=== PATIENT | female | born 1995 | race Caucasian/White ===

== ENCOUNTER 2016-07-16 06:34 | Emergency (ER) | payer BC, OTHER ==
[2016-07-16] MEDS ORDERED: ACETAMINOPHEN 325 MG TAB As Ordered ONE (07:13)
[2016-07-16] MEDS ORDERED: KETOROLAC 30 MG/ML VIAL (J1885) As Ordered ONE (07:14)
[2016-07-16 07:28] LABS: BASO # 0.1 K/mm3 (0.0-0.2); BASO % 1.2 % (0.0-1.0); EOS # 0.1 K/mm3 (0.0-0.50); EOS % 1.2 % (0.0-3.0); LARGE UNSTAINED CELL # 0.2 K/mm3 (0.0-0.4); LARGE UNSTAINED CELL % 3.1 % (0.0-4.0); LYMPH # 1.1 K/mm3 (1.5-6.5); LYMPH % 19.3 % (24.0-44.0); MEAN CORPUSCULAR HEMOGLOBIN 31.6 pg (27.0-33.0); MEAN CORPUSCULAR HGB CONC 34.1 g/dl (32.0-36.5); MEAN CORPUSCULAR VOLUME 92.7 fl (80.0-96.0); MONO # 0.5 K/mm3 (0.0-0.8); MONO % 9.8 % (0.0-5.0); NEUTROPHILS # 3.1 K/mm3 (1.8-7.7); NEUTROPHILS % 65.3 % (36.0-66.0); PLATELET COUNT, AUTOMATED 198 k/mm3 (150-450); RED CELL DISTRIBUTION WIDTH 12.4 % (11.5-14.5); WHITE BLOOD COUNT 4.7 K/mm3 (4.0-10.0)
[2016-07-16 07:57] LABS: ANION GAP 8 MEQ/L (8-16); BLOOD UREA NITROGEN 8 MG/DL (7-18); CALCIUM LEVEL 8.9 MG/DL (8.5-10.1); CARBON DIOXIDE LEVEL 25 MEQ/L (21-32); CHLORIDE LEVEL 109 MEQ/L (98-107); CREATININE FOR GFR 0.81 MG/DL (0.55-1.02); GLUCOSE, FASTING 109 MG/DL (70-105); POTASSIUM SERUM 3.9 MEQ/L (3.5-5.1); SODIUM LEVEL 142 MEQ/L (136-145)
--- NOTE | 2016-07-16 08:24 | REP ---
Clinical: cough. Comparison: 05/21/2015. Technique: PA and lateral. Findings: RLL infiltrate is identified. The mediastinum and cardiac silhouette are normal. The lung alexander are without effusion, or pneumothorax. The skeletal structures are intact and normal. Impression: 1. Acute right lower lobe infiltrate compatible with pneumonia. Signed by Wilner Crocker MD 07/16/2016 08:15 A
[2016-07-16] MEDS ORDERED: LevoFLOXacin/DEXTROSE 750 MG/150 ML BAG (J1956) As Ordered ONE (08:43)
--- NOTE | 2016-07-16 10:21 | EDDOCDS ---
Physician Documentation [facility] Name: Steffi Reynoso Age: 20 yrs Sex: Female : 1995 Arrival Date: 07/16/2016 Time: 06:34 Bed 12 Private MD: Tono Johnson Disposition: 07/16/16 08:39 Discharged to Home/Self Care. Impression: Pneumonia, unspecified organism, Fever, unspecified. - Condition is Stable. - Discharge Instructions: Fever, Adult, Pneumonia, Adult. - Prescriptions for Levaquin 750 mg Oral Tablet - take 1 tablet by ORAL route once daily for 5 days; 5 tablet. - Medication Reconciliation, Local Pharmacy Hours form. - Follow up: Tono Johnson; When: 4 - 5 days; Reason: Recheck today's complaints. - Problem is new. - Symptoms have improved. - Notes: You were seen in the ED for fever and chest congestion. Chest Xray showed pneumonia in the right lung. You may return home to take the antibiotics as directed as well as Tylenol and Ibuprofen to control the fever. Call your doctor to arrange to be seen this week for follow-up. Return to the ED for any worsening pain, trouble breathing, uncontrolled fever, or any other concerns. Historical: - Allergies: Augmentin; Rocephin; SHELLFISH; Zithromax; - Home Meds: 1. none - PMHx: none; - PSHx: Tonsillectomy; Adenoidectomy; - Social history: Smoking status: Patient states was never smoker of tobacco. No barriers to communication noted, The patient speaks fluent Montenegrin, Speaks appropriately for age. - Family history: Not pertinent. - : The pt / caregiver states he / she is not on anticoagulants. Home medication list is obtained from the patient. - Exposure Risk Screening:: None identified. 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 7 in. (170.18 cm); Pain 8/10; 07:52 BP 118 / 70; Pulse 91; Resp 18; Temp 99.6; Pulse Ox 99% ; Pain 8/10; hs1 10:15 BP 114 / 56 LA Sitting (auto/lg); Pulse 84; Resp 16; Temp 97.4(O); Pulse Ox 97% ; Pain jrd 8/10; 06:42 Body Mass Index 40.72 (117.93 kg, 170.18 cm) nn1 MDM: 06:57 IV Saline Lock ordered. cs11 06:57 -Blood Culture (Adults Only), peripheral from different site, or from device/port/PICC cs11 etc. if present ordered. 06:57 NS 0.9% 1000 ml IV at bolus once ordered. cs11 06:57 Acetaminophen Tablet 975 mg PO once ordered. cs11 06:57 ketorolac 30 mg IVP once ordered. cs11 06:58 CBC with Diff Ordered. EDMS 06:58 MED Profile Ordered. EDMS 06:58 -Influenza A&B Rapid Antigen - Nose Ordered. EDMS 06:58 -Blood Culture Ordered. EDMS 06:58 Chest, 2 View (pa\E\lat) Ordered. EDMS 07:00 -Blood Culture (Adults Only), peripheral from different site, or from device/port/PICC lbd etc. if present complete. 07:03 BLOOD CULTURES Ordered. EDMS 07:31 CBC with Diff Reviewed. br1 08:00 Financial registration complete. lg 08:33 [facility] Payment Agreement was scanned into [employer] and attached to record. lg 08:34 MED Profile Reviewed. br1 08:34 -Influenza A&B Rapid Antigen - Nose Reviewed. br1 08:37 levofloxacin 750 mg IVPB once over 90 mins ordered. br1 Administered Medications: 07:26 Drug: ketorolac 30 mg [ketorolac 30 mg/mL (1 mL) injection solution (1 mL)] Route: IVP; hs1 Site: right antecubital; 07:53 Follow up: Response: No Adverse Reaction hs1 07:27 Drug: NS 0.9% 1000 ml [sodium chloride 0.9 % intravenous solution] Route: IV; Rate: hs1 bolus; Site: right antecubital; 07:27 Drug: Acetaminophen 975 mg [acetaminophen 325 mg tablet (3 tabs)] Route: PO; hs1 07:52 Follow up: Response: Temperature is decreased hs1 08:51 Drug: levofloxacin 750 mg [levofloxacin 750 mg/150 mL in 5 % dextrose intravenous hs1 piggyback] Route: IVPB; Infused Over: 90 mins; Site: right antecubital; Signatures: Dispatcher [employer] EDAfua Cook, Marketing And Communications Officer Unit lbd Kingston Mendoza, Reg Reg lg Rubén Wade MD MD br1 Madai Cervantes RN RN hs1 Glenn Mckeon DO DO cs11 Dorota Torre RN RN af2 Rikki Rockwell RN RN nn1 The chart was reviewed and I authenticate all verbal orders and agree with the evaluation and treatment provided.Attachments: 08:33 [facility] Payment Agreement lg MTDD
--- NOTE | 2016-07-16 10:21 | EDDOCDS ---
Nurse's Notes [facility] Name: Steffi Reynoso Age: 20 yrs Sex: Female : 1995 Arrival Date: 07/16/2016 Time: 06:34 Bed 12 Private MD: Tono Johnson Diagnosis: Pneumonia, unspecified organism;Fever, unspecified Presentation: 07/16 06:38 Presenting complaint: Patient states: cold symptoms for last couple of days including nn1 coughing, vomiting, dizzy. Vomit is bright yellow, reports restlessness. Reports chest pain due to coughing. Adult Sepsis Screening: The patient does not have new or worsening altered mentation. Patient's respiratory rate is less than 22. Systolic blood pressure is greater than 100. Patient has a qSOFA score of 0- Negative Sepsis Screen. Suicide/Homicide risk assessment- the patient denies having any suicidal and/or homicidal ideations and does not present with any other emotional, behavioral or mental health complaints. Status: Patient is not a government services professional or dependent. Transition of care: patient was not received from another setting of care. 06:38 Acuity: ZAY Level 3 nn1 06:38 Method Of Arrival: Walkin/Carried/Asstd nn1 Triage Assessment: 06:40 General: Appears in no apparent distress, uncomfortable. Pain: Location: chest Pain nn1 currently is 9 out of 10 on a pain scale. Quality of pain is described as pressure, Pain began this AM. HIV screening NA for this visit Offered previously. The patient is triaged at the bedside. See Assessment in Nurses Notes section of ED record. Neurological: Level of Consciousness is awake, alert. Respiratory: Onset: The symptoms/episode began/occurred 3 days ago , Airway is patent Respiratory effort is even, Respiratory pattern is regular, symmetrical, Breath sounds are clear bilaterally. Reports cough that is. Derm: Skin is pink, warm & dry. 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 none - PMHx: none; - PSHx: Tonsillectomy; Adenoidectomy; - Social history: Smoking status: Patient states was never smoker of tobacco. No barriers to communication noted, The patient speaks fluent Swedish, Speaks appropriately for age. - Family history: Not pertinent. - : The pt / caregiver states he / she is not on anticoagulants. Home medication list is obtained from the patient. - Exposure Risk Screening:: None identified. Screenin:50 Screening information is obtained from the patient. Fall risk: No risks identified. af2 Assistance ADL's: requires no assistance with activities of daily living. Abuse/DV Screen: The patient / caregiver reports he/she is: not in a situation that causes fear, pain or injury. Nutritional screening: No deficits noted. Advance Directives: There is no active DNR order. home support is adequate. Assessment: 06:51 General: Appears in no apparent distress, comfortable, Behavior is cooperative. af2 Cardiovascular: No deficits noted. Respiratory: Airway is patent Respiratory effort is even, unlabored, Breath sounds are clear bilaterally. GI: Reports nausea, vomiting. 07:24 General: Appears in no apparent distress, Behavior is cooperative. Neurological: Level hs1 of Consciousness is awake, alert, obeys commands. EENT: Reports nasal congestion. Cardiovascular: No deficits noted. Respiratory: Airway is patent Respiratory effort is even, unlabored. Respiratory: Reports cough that is productive. GI: Abdomen is obese, Reports nausea. Derm: Skin is pink, warm & dry. normal. 07:51 Reassessment: Pt complaining of headache however starting to feel better. Pain in head hs1 is 8/10. Resting on stretcher with family present. . 08:45 Adult Sepsis Screening: The patient does not have new or worsening altered mentation. hs1 Patient's respiratory rate is less than 22. Systolic blood pressure is greater than 100. Patient has a qSOFA score of 0- Negative Sepsis Screen. General: Appears in no apparent distress, comfortable, Behavior is appropriate for age, cooperative. Neurological: No deficits noted. Cardiovascular: No deficits noted. Respiratory: Airway is patent Respiratory effort is even, unlabored. GI: Denies nausea, vomiting. Derm: Skin is pink, warm & dry. normal. 09:56 Reassessment: Patient appears in no apparent distress at this time. Patient states hs1 feeling better. Patient states symptoms have improved. Pt resting awaiting finishing IV Levaquin. . 10:20 Reassessment: Patient appears in no apparent distress at this time. Patient denies pain hs1 at this time. Patient states feeling better. Patient states symptoms have improved. Vital Signs: 06:42 BP 144 / 91; Pulse 125; Resp 18; Temp 100.2(T); Pulse Ox 96% on R/A; Weight 117.93 kg; nn1 Height 5 ft. 7 in. (170.18 cm); Pain 8/10; 07:52 BP 118 / 70; Pulse 91; Resp 18; Temp 99.6; Pulse Ox 99% ; Pain 8/10; hs1 10:15 BP 114 / 56 LA Sitting (auto/lg); Pulse 84; Resp 16; Temp 97.4(O); Pulse Ox 97% ; Pain jrd 8/10; 06:42 Body Mass Index 40.72 (117.93 kg, 170.18 cm) nn1 Vitals: 06:42 Log In Time: July 16, 2016 at 06:34. nn1 ED Course: 06:36 Patient visited by Perla Escobar. mm15 06:36 Tono Johnson is Private Physician. mm15 06:36 Patient moved to Waiting mm15 06:39 Triage Initiated nn1 06:44 Dorota Torre RN is Primary Nurse. nn1 06:44 Patient moved to 12 nn1 06:50 Glenn Mckeon DO is Attending Physician. cs11 06:50 Patient visited by Glenn Mckeon DO. cs11 06:51 Patient visited by Dorota Torre RN. af2 06:51 The patient / caregiver is instructed regarding the plan of care and ED course. af2 07:00 Inserted saline lock: 20 gauge in right antecubital area and blood collected. The hs1 patient tolerated the procedure well. 07:07 Attending Physician role handed off by Glenn Mckeon DO br1 07:07 Rubén Wade MD is Attending Physician. br1 07:11 Primary Nurse role handed off by Dorota Torre RN jjr 07:12 MED Profile Sent. hs1 07:12 CBC with Diff Sent. hs1 07:12 -Influenza A&B Rapid Antigen - Nose Sent. hs1 07:39 Patient visited by Madai Cervantes, VIC. hs1 08:14 Patient visited by Madai Cervantes, VIC. hs1 08:[address] [facility] Payment Agreement was scanned into [employer] and attached to record. lg 08:37 Patient visited by Rubén Wade MD. br1 08:39 Tono Johnson is Referral Physician. br1 08:42 Chest, 2 View (pa\E\lat) Returned. EDMS 08:51 BLOOD CULTURES Sent. hs1 10:16 Patient visited by Ron Langford PCA. jrd 10:20 Discontinued IV lock intact, bleeding controlled, pressure dressing applied, No hs1 redness/swelling at site. No procedures done that require assistance. Administered Medications: 07:26 Drug: ketorolac 30 mg [ketorolac 30 mg/mL (1 mL) injection solution (1 mL)] Route: IVP; hs1 Site: right antecubital; 07:53 Follow up: Response: No Adverse Reaction hs1 07:27 Drug: NS 0.9% 1000 ml [sodium chloride 0.9 % intravenous solution] Route: IV; Rate: hs1 bolus; Site: right antecubital; 07:27 Drug: Acetaminophen 975 mg [acetaminophen 325 mg tablet (3 tabs)] Route: PO; hs1 07:52 Follow up: Response: Temperature is decreased hs1 08:51 Drug: levofloxacin 750 mg [levofloxacin 750 mg/150 mL in 5 % dextrose intravenous hs1 piggyback] Route: IVPB; Infused Over: 90 mins; Site: right antecubital; Order Results: Lab Order: -Influenza A&B Rapid Antigen - Nose; SPEC'M 07/16/16 07:10 Test: INFLUENZA A RAPID SCR by ICA; Value: INFLUENZA A RESULTS NEGATIVE; Status: F Test: INFLUENZA A RAPID SCR by ICA; Value: Comments:; Status: F Test: INFLUENZA B RAPID SCR by ICA; Value: INFLUENZA B RESULTS NEGATIVE; Status: F Test Note: ; The Influenza test is a direct rapid immunoassay for the qualitative detection of Influenza viral antigen. Cell culture (Viral Culture) testing should be considered to confirm NEGATIVE results and to assist in detecting other viruses that can provide similar clinical symptoms. Please contact the lab within 24 hours ([phone]) if confirmatory testing is desired. Lab Order: CBC with Diff; SPEC'M 07/16/16 07:10 Test: WHITE BLOOD COUNT; Value: 4.7; Range: 4.0-10.0; Units: K/mm3; Status: F Test: RED BLOOD COUNT; Value: 4.83; Range: 4.00-5.40; Units: M/mm3; Status: F Test: HEMOGLOBIN; Value: 15.3; Range: 12.0-16.0; Units: g/dl; Status: F Test: HEMATOCRIT; Value: 44.8; Range: 36.0-47.0; Units: %; Status: F Test: MEAN CORPUSCULAR VOLUME; Value: 92.7; Range: 80.0-96.0; Units: fl; Status: F Test: MEAN CORPUSCULAR HEMOGLOBIN; Value: 31.6; Range: 27.0-33.0; Units: pg; Status: F Test: MEAN CORPUSCULAR HGB CONC; Value: 34.1; Range: 32.0-36.5; Units: g/dl; Status: F Test: RED CELL DISTRIBUTION WIDTH; Value: 12.4; Range: 11.5-14.5; Units: %; Status: F Test: PLATELET COUNT, AUTOMATED; Value: 198; Range: 150-450; Units: k/mm3; Status: F Test: NEUTROPHILS %; Value: 65.3; Range: 36.0-66.0; Units: %; Status: F Test: LYMPH %; Value: 19.3; Range: 24.0-44.0; Abnormal: Below low normal; Units: %; Status: F Test: MONO %; Value: 9.8; Range: 0.0-5.0; Abnormal: Above high normal; Units: %; Status: F Test: EOS %; Value: 1.2; Range: 0.0-3.0; Units: %; Status: F Test: BASO %; Value: 1.2; Range: 0.0-1.0; Abnormal: Above high normal; Units: %; Status: F Test: LARGE UNSTAINED CELL %; Value: 3.1; Range: 0.0-4.0; Units: %; Status: F Test: NEUTROPHILS #; Value: 3.1; Range: 1.8-7.7; Units: K/mm3; Status: F Test: LYMPH #; Value: 1.1; Range: 1.5-6.5; Abnormal: Below low normal; Units: K/mm3; Status: F Test: MONO #; Value: 0.5; Range: 0.0-0.8; Units: K/mm3; Status: F Test: EOS #; Value: 0.1; Range: 0.0-0.50; Units: K/mm3; Status: F Test: BASO #; Value: 0.1; Range: 0.0-0.2; Units: K/mm3; Status: F Test: LARGE UNSTAINED CELL #; Value: 0.2; Range: 0.0-0.4; Units: K/mm3; Status: F Lab Order: MED Profile; SPEC'M 07/16/16 07:10 Test: GLUCOSE, FASTING; Value: 109; Range: 70-105; Abnormal: Above high normal; Units: MG/DL; Status: F Test: BLOOD UREA NITROGEN; Value: 8; Range: 7-18; Units: MG/DL; Status: F Test: CREATININE FOR GFR; Value: 0.81; Range: 0.55-1.02; Units: MG/DL; Status: F Test: SODIUM LEVEL; Value: 142; Range: 136-145; Units: MEQ/L; Status: F Test: POTASSIUM SERUM; Value: 3.9; Range: 3.5-5.1; Units: MEQ/L; Status: F Test: CHLORIDE LEVEL; Value: 109; Range: 98-107; Abnormal: Above high normal; Units: MEQ/L; Status: F Test: CARBON DIOXIDE LEVEL; Value: 25; Range: 21-32; Units: MEQ/L; Status: F Test: ANION GAP; Value: 8; Range: 8-16; Units: MEQ/L; Status: F Test: CALCIUM LEVEL; Value: 8.9; Range: 8.5-10.1; Units: MG/DL; Status: F Radiology Order: Chest, 2 View (pa\E\lat) Test: Chest, 2 View (pa\E\lat) REASON FOR EXAMINATION: Cough; Clinical: cough.; ; Comparison: 05/21/2015.; ; Technique: PA and lateral.; ; Findings:; RLL infiltrate is identified. The mediastinum and cardiac silhouette are normal.; The lung alexander are without effusion, or pneumothorax. The skeletal structures; are intact and normal.; ; Impression:; 1. Acute right lower lobe infiltrate compatible with pneumonia.; ; ; Signed by; Wilner Crocker MD 07/16/2016 08:15 A; Outcome: 08:39 Discharge ordered by Provider. br1 10:20 Discharge Assessment: Patient awake, alert and oriented x 3. No cognitive and/or hs1 functional deficits noted. Patient verbalized understanding of disposition instructions. patient administered narcotics - no. The following High Risk Discharge criteria are identified: None. Discharged to home ambulatory. Condition: stable. Discharge instructions given to patient, parents Instructed on discharge instructions, follow up and referral plans. medication usage, Demonstrated understanding of instructions, medications, Pt was receptive of discharge instructions/ teaching. Prescriptions given X 1. No special radiology studies were completed. Property sent home with patient. 10:21 Patient left the ED. hs1 Signatures: Dispatcher [employer] EDMS Kingston Mendoza, Rubén Ayala lg, MD MD br1 Enedina Meléndez, RN RN Madai Nunez RN RN hs1 Glenn Mckeon, DO cs11 Perla Escobar mm15 Ron Langford, [facility] REHAB DIRECTOR Dorota PierceRN RN af2 Rikki Rockwell,RN RN nn1 Corrections: (The following items were deleted from the chart) 07:26 06:51 No procedures done that require assistance af2 hs1 07:26 06:51 No IV's were initiated during this patient's visit af2 hs1 MTDD
--- NOTE | 2016-07-18 11:22 | EDDOCDS ---
Nurse's Notes [facility] Name: Steffi Reynoso Age: 20 yrs Sex: Female : 1995 Arrival Date: 07/16/2016 Time: 06:34 Bed 12 Private MD: Tono Johnson Diagnosis: Pneumonia, unspecified organism;Fever, unspecified Presentation: 07/16 06:38 Presenting complaint: Patient states: cold symptoms for last couple of days including nn1 coughing, vomiting, dizzy. Vomit is bright yellow, reports restlessness. Reports chest pain due to coughing. Adult Sepsis Screening: The patient does not have new or worsening altered mentation. Patient's respiratory rate is less than 22. Systolic blood pressure is greater than 100. Patient has a qSOFA score of 0- Negative Sepsis Screen. Suicide/Homicide risk assessment- the patient denies having any suicidal and/or homicidal ideations and does not present with any other emotional, behavioral or mental health complaints. 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 Transition of care: patient was not received from another setting of care. 06:38 Acuity: ZAY Level 3 nn1 06:38 Method Of Arrival: Walkin/Carried/Asstd nn1 Triage Assessment: 06:40 General: Appears in no apparent distress, uncomfortable. Pain: Location: chest Pain nn1 currently is 9 out of 10 on a pain scale. Quality of pain is described as pressure, Pain began this AM. HIV screening NA for this visit Offered previously. The patient is triaged at the bedside. See Assessment in Nurses Notes section of ED record. Neurological: Level of Consciousness is awake, alert. Respiratory: Onset: The symptoms/episode began/occurred 3 days ago , Airway is patent Respiratory effort is even, Respiratory pattern is regular, symmetrical, Breath sounds are clear bilaterally. Reports cough that is. Derm: Skin is pink, warm & dry. 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 none - PMHx: none; - PSHx: Tonsillectomy; Adenoidectomy; - Social history: Smoking status: Patient states was never smoker of tobacco. No barriers to communication noted, The patient speaks fluent Divehi, Speaks appropriately for age. - Family history: Not pertinent. - : The pt / caregiver states he / she is not on anticoagulants. Home medication list is obtained from the patient. - Exposure Risk Screening:: None identified. Screenin:50 Screening information is obtained from the patient. Fall risk: No risks identified. af2 Assistance ADL's: requires no assistance with activities of daily living. Abuse/DV Screen: The patient / caregiver reports he/she is: not in a situation that causes fear, pain or injury. Nutritional screening: No deficits noted. Advance Directives: There is no active DNR order. home support is adequate. Assessment: 06:51 General: Appears in no apparent distress, comfortable, Behavior is cooperative. af2 Cardiovascular: No deficits noted. Respiratory: Airway is patent Respiratory effort is even, unlabored, Breath sounds are clear bilaterally. GI: Reports nausea, vomiting. 07:24 General: Appears in no apparent distress, Behavior is cooperative. Neurological: Level hs1 of Consciousness is awake, alert, obeys commands. EENT: Reports nasal congestion. Cardiovascular: No deficits noted. Respiratory: Airway is patent Respiratory effort is even, unlabored. Respiratory: Reports cough that is productive. GI: Abdomen is obese, Reports nausea. Derm: Skin is pink, warm & dry. normal. 07:51 Reassessment: Pt complaining of headache however starting to feel better. Pain in head hs1 is 8/10. Resting on stretcher with family present. . 08:45 Adult Sepsis Screening: The patient does not have new or worsening altered mentation. hs1 Patient's respiratory rate is less than 22. Systolic blood pressure is greater than 100. Patient has a qSOFA score of 0- Negative Sepsis Screen. General: Appears in no apparent distress, comfortable, Behavior is appropriate for age, cooperative. Neurological: No deficits noted. Cardiovascular: No deficits noted. Respiratory: Airway is patent Respiratory effort is even, unlabored. GI: Denies nausea, vomiting. Derm: Skin is pink, warm & dry. normal. 09:56 Reassessment: Patient appears in no apparent distress at this time. Patient states hs1 feeling better. Patient states symptoms have improved. Pt resting awaiting finishing IV Levaquin. . 10:20 Reassessment: Patient appears in no apparent distress at this time. Patient denies pain hs1 at this time. Patient states feeling better. Patient states symptoms have improved. Vital Signs: 06:42 BP 144 / 91; Pulse 125; Resp 18; Temp 100.2(T); Pulse Ox 96% on R/A; Weight 117.93 kg; nn1 Height 5 ft. 7 in. (170.18 cm); Pain 8/10; 07:52 BP 118 / 70; Pulse 91; Resp 18; Temp 99.6; Pulse Ox 99% ; Pain 8/10; hs1 10:15 BP 114 / 56 LA Sitting (auto/lg); Pulse 84; Resp 16; Temp 97.4(O); Pulse Ox 97% ; Pain jrd 8/10; 06:42 Body Mass Index 40.72 (117.93 kg, 170.18 cm) nn1 Vitals: 06:42 Log In Time: July 16, 2016 at 06:34. nn1 ED Course: 06:36 Patient visited by Perla Escobar. mm15 06:36 Tono Johnson is Private Physician. mm15 06:36 Patient moved to Waiting mm15 06:39 Triage Initiated nn1 06:44 Dorota Torre RN is Primary Nurse. nn1 06:44 Patient moved to 12 nn1 06:50 Glenn Mckeon DO is Attending Physician. cs11 06:50 Patient visited by Glenn Mckeon DO. cs11 06:51 Patient visited by Dorota Torre RN. af2 06:51 The patient / caregiver is instructed regarding the plan of care and ED course. af2 07:00 Inserted saline lock: 20 gauge in right antecubital area and blood collected. The hs1 patient tolerated the procedure well. 07:07 Attending Physician role handed off by Glenn Mckeon DO br1 07:07 Rubén Wade MD is Attending Physician. br1 07:11 Primary Nurse role handed off by Dorota Torre RN jjr 07:12 MED Profile Sent. hs1 07:12 CBC with Diff Sent. hs1 07:12 -Influenza A&B Rapid Antigen - Nose Sent. hs1 07:39 Patient visited by Madai Cervantes, VIC. hs1 08:14 Patient visited by Madai Cervantes, VIC. hs1 08:33 [facility] [place] Agreement was scanned into [employer] and attached to record. lg 08:37 Patient visited by Rubén Wade MD. br1 08:39 Tono Johnson is Referral Physician. br1 08:42 Chest, 2 View (pa\E\lat) Returned. EDMS 08:51 BLOOD CULTURES Sent. hs1 10:16 Patient visited by Ron Langford PCA. jrd 10:20 Discontinued IV lock intact, bleeding controlled, pressure dressing applied, No hs1 redness/swelling at site. No procedures done that require assistance. 07/17 09:28 T-Sheet-- Draft Copy was scanned into [employer] and attached to record. gb 09:29 Radiology Report was scanned into [employer] and attached to record. gb Administered Medications: 07/16 07:26 Drug: ketorolac 30 mg [ketorolac 30 mg/mL (1 mL) injection solution (1 mL)] Route: IVP; hs1 Site: right antecubital; 07:53 Follow up: Response: No Adverse Reaction hs1 07:27 Drug: NS 0.9% 1000 ml [sodium chloride 0.9 % intravenous solution] Route: IV; Rate: hs1 bolus; Site: right antecubital; 07:27 Drug: Acetaminophen 975 mg [acetaminophen 325 mg tablet (3 tabs)] Route: PO; hs1 07:52 Follow up: Response: Temperature is decreased hs1 08:51 Drug: levofloxacin 750 mg [levofloxacin 750 mg/150 mL in 5 % dextrose intravenous hs1 piggyback] Route: IVPB; Infused Over: 90 mins; Site: right antecubital; 10:21 Follow up: IV Status: Completed infusion; IV Intake: 150ml hs1 Intake: 10:21 IV: 150.00ml; Total: 150.00ml. hs1 Order Results: Lab Order: -Influenza A&B Rapid Antigen - Nose; SPEC'M 07/16/16 07:10 Test: INFLUENZA A RAPID SCR by ICA; Value: INFLUENZA A RESULTS NEGATIVE; Status: F Test: INFLUENZA A RAPID SCR by ICA; Value: Comments:; Status: F Test: INFLUENZA B RAPID SCR by ICA; Value: INFLUENZA B RESULTS NEGATIVE; Status: F Test Note: ; The Influenza test is a direct rapid immunoassay for the qualitative detection of Influenza viral antigen. Cell culture (Viral Culture) testing should be considered to confirm NEGATIVE results and to assist in detecting other viruses that can provide similar clinical symptoms. Please contact the lab within 24 hours ([phone]) if confirmatory testing is desired. Lab Order: -Blood Culture; SPEC'M 07/16/16 07:10 Test: BLOOD CULTURE; Value: No growth after 24 hours . All specimens observed; Status: F Test: BLOOD CULTURE; Value: for 5 days. Results final at that time.; Status: F Test: BLOOD CULTURE; Value: No Growth after 48 hours. All Specimens observed; Status: F Test: BLOOD CULTURE; Value: for 7 days. Results final at that time.; Status: F Lab Order: CBC with Diff; SPEC'M 07/16/16 07:10 Test: WHITE BLOOD COUNT; Value: 4.7; Range: 4.0-10.0; Units: K/mm3; Status: F Test: RED BLOOD COUNT; Value: 4.83; Range: 4.00-5.40; Units: M/mm3; Status: F Test: HEMOGLOBIN; Value: 15.3; Range: 12.0-16.0; Units: g/dl; Status: F Test: HEMATOCRIT; Value: 44.8; Range: 36.0-47.0; Units: %; Status: F Test: MEAN CORPUSCULAR VOLUME; Value: 92.7; Range: 80.0-96.0; Units: fl; Status: F Test: MEAN CORPUSCULAR HEMOGLOBIN; Value: 31.6; Range: 27.0-33.0; Units: pg; Status: F Test: MEAN CORPUSCULAR HGB CONC; Value: 34.1; Range: 32.0-36.5; Units: g/dl; Status: F Test: RED CELL DISTRIBUTION WIDTH; Value: 12.4; Range: 11.5-14.5; Units: %; Status: F Test: PLATELET COUNT, AUTOMATED; Value: 198; Range: 150-450; Units: k/mm3; Status: F Test: NEUTROPHILS %; Value: 65.3; Range: 36.0-66.0; Units: %; Status: F Test: LYMPH %; Value: 19.3; Range: 24.0-44.0; Abnormal: Below low normal; Units: %; Status: F Test: MONO %; Value: 9.8; Range: 0.0-5.0; Abnormal: Above high normal; Units: %; Status: F Test: EOS %; Value: 1.2; Range: 0.0-3.0; Units: %; Status: F Test: BASO %; Value: 1.2; Range: 0.0-1.0; Abnormal: Above high normal; Units: %; Status: F Test: LARGE UNSTAINED CELL %; Value: 3.1; Range: 0.0-4.0; Units: %; Status: F Test: NEUTROPHILS #; Value: 3.1; Range: 1.8-7.7; Units: K/mm3; Status: F Test: LYMPH #; Value: 1.1; Range: 1.5-6.5; Abnormal: Below low normal; Units: K/mm3; Status: F Test: MONO #; Value: 0.5; Range: 0.0-0.8; Units: K/mm3; Status: F Test: EOS #; Value: 0.1; Range: 0.0-0.50; Units: K/mm3; Status: F Test: BASO #; Value: 0.1; Range: 0.0-0.2; Units: K/mm3; Status: F Test: LARGE UNSTAINED CELL #; Value: 0.2; Range: 0.0-0.4; Units: K/mm3; Status: F Lab Order: [facility] Profile; [facility] 07/16/16 07:10 Test: GLUCOSE, FASTING; Value: 109; Range: 70-105; Abnormal: Above high normal; Units: MG/DL; Status: F Test: BLOOD UREA NITROGEN; Value: 8; Range: 7-18; Units: MG/DL; Status: F Test: CREATININE FOR GFR; Value: 0.81; Range: 0.55-1.02; Units: MG/DL; Status: F Test: SODIUM LEVEL; Value: 142; Range: 136-145; Units: MEQ/L; Status: F Test: POTASSIUM SERUM; Value: 3.9; Range: 3.5-5.1; Units: MEQ/L; Status: F Test: CHLORIDE LEVEL; Value: 109; Range: 98-107; Abnormal: Above high normal; Units: MEQ/L; Status: F Test: CARBON DIOXIDE LEVEL; Value: 25; Range: 21-32; Units: MEQ/L; Status: F Test: ANION GAP; Value: 8; Range: 8-16; Units: MEQ/L; Status: F Test: CALCIUM LEVEL; Value: 8.9; Range: 8.5-10.1; Units: MG/DL; Status: F Lab Order: BLOOD CULTURES; SPEC'M 07/16/16 08:50 Test: BLOOD CULTURE; Value: No growth after 24 hours . All specimens observed; Status: F Test: BLOOD CULTURE; Value: for 5 days. Results final at that time.; Status: F Test: BLOOD CULTURE; Value: No Growth after 48 hours. All Specimens observed; Status: F Test: BLOOD CULTURE; Value: for 7 days. Results final at that time.; Status: F Radiology Order: Chest, 2 View (pa\E\lat) Test: Chest, 2 View (pa\E\lat) REASON FOR EXAMINATION: Cough; Clinical: cough.; ; Comparison: 05/21/2015.; ; Technique: PA and lateral.; ; Findings:; RLL infiltrate is identified. The mediastinum and cardiac silhouette are normal.; The lung alexander are without effusion, or pneumothorax. The skeletal structures; are intact and normal.; ; Impression:; 1. Acute right lower lobe infiltrate compatible with pneumonia.; ; ; Signed by; Wilner Crocker MD 07/16/2016 08:15 A; Outcome: 08:39 Discharge ordered by Provider. br1 10:20 Discharge Assessment: Patient awake, alert and oriented x 3. No cognitive and/or hs1 functional deficits noted. Patient verbalized understanding of disposition instructions. patient administered narcotics - no. The following High Risk Discharge criteria are identified: None. Discharged to home ambulatory. Condition: stable. Discharge instructions given to patient, parents Instructed on discharge instructions, follow up and referral plans. medication usage, Demonstrated understanding of instructions, medications, Pt was receptive of discharge instructions/ teaching. Prescriptions given X 1. No special radiology studies were completed. Property sent home with patient. 10:21 Patient left the ED. hs1 Signatures: Dispatcher [employer] EDMS Aurora Gómez, Reg Reg gb Kingston Mendoza, Reg Reg lg Rubén Wade MD MD br1 Enedina Meléndez RN RN jjr Sherrill, Hannah, RN RN hs1 Glenn Mckeon DO cs11 Perla Escobar mm15 Ron Langford, V GROOVE CUTTER V GROOVE CUTTER jrd Dorota TorreRN RN af2 Rikki Rockwell RN RN nn1 Corrections: (The following items were deleted from the chart) 07: 06:51 No procedures done that require assistance af2 hs1 06:51 No IV's were initiated during this patient's visit af2 hs1 Chart Complete MTDD
--- NOTE | 2016-07-18 11:22 | EDDOCDS ---
Physician Documentation [facility] Name: Steffi Reynoso Age: 20 yrs Sex: Female : 1995 Arrival Date: 07/16/2016 Time: 06:34 Bed 12 Private MD: Tono Johnson Disposition: 07/16/16 08:39 Discharged to Home/Self Care. Impression: Pneumonia, unspecified organism, Fever, unspecified. - Condition is Stable. - Discharge Instructions: Fever, Adult, Pneumonia, Adult. - Prescriptions for Levaquin 750 mg Oral Tablet - take 1 tablet by ORAL route once daily for 5 days; 5 tablet. - Medication Reconciliation, Local Pharmacy Hours form. - Follow up: Tono Johnson; When: 4 - 5 days; Reason: Recheck today's complaints. - Problem is new. - Symptoms have improved. - Notes: You were seen in the ED for fever and chest congestion. Chest Xray showed pneumonia in the right lung. You may return home to take the antibiotics as directed as well as Tylenol and Ibuprofen to control the fever. Call your doctor to arrange to be seen this week for follow-up. Return to the ED for any worsening pain, trouble breathing, uncontrolled fever, or any other concerns. Historical: - Allergies: Augmentin; Rocephin; SHELLFISH; Zithromax; - Home Meds: 1. none - PMHx: none; - PSHx: Tonsillectomy; Adenoidectomy; - Social history: Smoking status: Patient states was never smoker of tobacco. No barriers to communication noted, The patient speaks fluent Cape Verdean, Speaks appropriately for age. - Family history: Not pertinent. - : The pt / caregiver states he / she is not on anticoagulants. Home medication list is obtained from the patient. - Exposure Risk Screening:: None identified. 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 7 in. (170.18 cm); Pain 8/10; 07:52 BP 118 / 70; Pulse 91; Resp 18; Temp 99.6; Pulse Ox 99% ; Pain 8/10; hs1 10:15 BP 114 / 56 LA Sitting (auto/lg); Pulse 84; Resp 16; Temp 97.4(O); Pulse Ox 97% ; Pain jrd 8/10; 06:42 Body Mass Index 40.72 (117.93 kg, 170.18 cm) nn1 MDM: 06:57 IV Saline Lock ordered. cs11 06:57 -Blood Culture (Adults Only), peripheral from different site, or from device/port/PICC cs11 etc. if present ordered. 06:57 NS 0.9% 1000 ml IV at bolus once ordered. cs11 06:57 Acetaminophen Tablet 975 mg PO once ordered. cs11 06:57 ketorolac 30 mg IVP once ordered. cs11 06:58 CBC with Diff Ordered. EDMS 06:58 MED Profile Ordered. EDMS 06:58 -Influenza A&B Rapid Antigen - Nose Ordered. EDMS 06:58 -Blood Culture Ordered. EDMS 06:58 Chest, 2 View (pa\E\lat) Ordered. EDMS 07:00 -Blood Culture (Adults Only), peripheral from different site, or from device/port/PICC lbd etc. if present complete. 07:03 BLOOD CULTURES Ordered. EDMS 07:31 CBC with Diff Reviewed. br1 08:00 Financial registration complete. lg 08:33 [facility] [place] Payment Agreement was scanned into [employer] and attached to record. lg 08:34 MED Profile Reviewed. br1 08:34 -Influenza A&B Rapid Antigen - Nose Reviewed. br1 08:37 levofloxacin 750 mg IVPB once over 90 mins ordered. br1 07/17 09:28 T-Sheet-- Draft Copy was scanned into [employer] and attached to record. gb 09:29 Radiology Report was scanned into [employer] and attached to record. gb Administered Medications: 07/16 07:26 Drug: ketorolac 30 mg [ketorolac 30 mg/mL (1 mL) injection solution (1 mL)] Route: IVP; hs1 Site: right antecubital; 07:53 Follow up: Response: No Adverse Reaction hs1 07:27 Drug: NS 0.9% 1000 ml [sodium chloride 0.9 % intravenous solution] Route: IV; Rate: hs1 bolus; Site: right antecubital; 07:27 Drug: Acetaminophen 975 mg [acetaminophen 325 mg tablet (3 tabs)] Route: PO; hs1 07:52 Follow up: Response: Temperature is decreased hs1 08:51 Drug: levofloxacin 750 mg [levofloxacin 750 mg/150 mL in 5 % dextrose intravenous hs1 piggyback] Route: IVPB; Infused Over: 90 mins; Site: right antecubital; 10:21 Follow up: IV Status: Completed infusion; IV Intake: 150ml hs1 Signatures: Dispatcher [employer] EDMS Afua Parmar, Stained Glass Window Designer Unit lbd Aurora Gómez, Reg Reg gb Kingston Mendoza, Reg Reg lg Rubén Wade MD MD br1 Madai Cervantes RN RN hs1 Glenn Mckeon DO DO cs11 Dorota Torre RN RN af2 Rikki Rockwell,RN RN nn1 The chart was reviewed and I authenticate all verbal orders and agree with the evaluation and treatment provided.Attachments: 08:33 [facility] Payment Agreement lg 07/17 09:28 T-Sheet-- Draft Copy gb Chart Complete MTDD
--- NOTE | 2016-07-18 11:22 | EDDOCDS ---
Physician Documentation [facility] Name: Steffi Reynoso Age: 20 yrs Sex: Female : 1995 Arrival Date: 07/16/2016 Time: 06:34 Bed 12 Private MD: Tono Johnson Disposition: 07/16/16 08:39 Discharged to Home/Self Care. Impression: Pneumonia, unspecified organism, Fever, unspecified. - Condition is Stable. - Discharge Instructions: Fever, Adult, Pneumonia, Adult. - Prescriptions for Levaquin 750 mg Oral Tablet - take 1 tablet by ORAL route once daily for 5 days; 5 tablet. - Medication Reconciliation, Local Pharmacy Hours form. - Follow up: Tono Johnson; When: 4 - 5 days; Reason: Recheck today's complaints. - Problem is new. - Symptoms have improved. - Notes: You were seen in the ED for fever and chest congestion. Chest Xray showed pneumonia in the right lung. You may return home to take the antibiotics as directed as well as Tylenol and Ibuprofen to control the fever. Call your doctor to arrange to be seen this week for follow-up. Return to the ED for any worsening pain, trouble breathing, uncontrolled fever, or any other concerns. Historical: - Allergies: Augmentin; Rocephin; SHELLFISH; Zithromax; - Home Meds: 1. none - PMHx: none; - PSHx: Tonsillectomy; Adenoidectomy; - Social history: Smoking status: Patient states was never smoker of tobacco. No barriers to communication noted, The patient speaks fluent Togolese, Speaks appropriately for age. - Family history: Not pertinent. - : The pt / caregiver states he / she is not on anticoagulants. Home medication list is obtained from the patient. - Exposure Risk Screening:: None identified. 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 7 in. (170.18 cm); Pain 8/10; 07:52 BP 118 / 70; Pulse 91; Resp 18; Temp 99.6; Pulse Ox 99% ; Pain 8/10; hs1 10:15 BP 114 / 56 LA Sitting (auto/lg); Pulse 84; Resp 16; Temp 97.4(O); Pulse Ox 97% ; Pain jrd 8/10; 06:42 Body Mass Index 40.72 (117.93 kg, 170.18 cm) nn1 MDM: 06:57 IV Saline Lock ordered. cs11 06:57 -Blood Culture (Adults Only), peripheral from different site, or from device/port/PICC cs11 etc. if present ordered. 06:57 NS 0.9% 1000 ml IV at bolus once ordered. cs11 06:57 Acetaminophen Tablet 975 mg PO once ordered. cs11 06:57 ketorolac 30 mg IVP once ordered. cs11 06:58 CBC with Diff Ordered. EDMS 06:58 MED Profile Ordered. EDMS 06:58 -Influenza A&B Rapid Antigen - Nose Ordered. EDMS 06:58 -Blood Culture Ordered. EDMS 06:58 Chest, 2 View (pa\E\lat) Ordered. EDMS 07:00 -Blood Culture (Adults Only), peripheral from different site, or from device/port/PICC lbd etc. if present complete. 07:03 BLOOD CULTURES Ordered. EDMS 07:31 CBC with Diff Reviewed. br1 08:00 Financial registration complete. lg 08:33 [facility] Payment Agreement was scanned into [employer] and attached to record. lg 08:34 MED Profile Reviewed. br1 08:34 -Influenza A&B Rapid Antigen - Nose Reviewed. br1 08:37 levofloxacin 750 mg IVPB once over 90 mins ordered. br1 07/17 09:28 T-Sheet-- Draft Copy was scanned into [employer] and attached to record. gb 09:29 Radiology Report was scanned into [employer] and attached to record. gb Administered Medications: 07/16 07:26 Drug: ketorolac 30 mg [ketorolac 30 mg/mL (1 mL) injection solution (1 mL)] Route: IVP; hs1 Site: right antecubital; 07:53 Follow up: Response: No Adverse Reaction hs1 07:27 Drug: NS 0.9% 1000 ml [sodium chloride 0.9 % intravenous solution] Route: IV; Rate: hs1 bolus; Site: right antecubital; 07:27 Drug: Acetaminophen 975 mg [acetaminophen 325 mg tablet (3 tabs)] Route: PO; hs1 07:52 Follow up: Response: Temperature is decreased hs1 08:51 Drug: levofloxacin 750 mg [levofloxacin 750 mg/150 mL in 5 % dextrose intravenous hs1 piggyback] Route: IVPB; Infused Over: 90 mins; Site: right antecubital; 10:21 Follow up: IV Status: Completed infusion; IV Intake: 150ml hs1 Signatures: Dispatcher [employer] EDMS Afua Parmar, Test Lead Unit lbd Aurora Gómez, Reg Reg gb Kingston Mendoza, Reg Reg lg Rubén Wade MD MD br1 Madai Cervantes RN RN hs1 Glenn Mckeon DO DO cs11 Dorota Torre RN RN af2 Rikki Rockwell,RN RN nn1 The chart was reviewed and I authenticate all verbal orders and agree with the evaluation and treatment provided.Attachments: 08:33 [facility] Payment Agreement lg 07/17 09:28 T-Sheet-- Draft Copy gb Chart Complete MTDD
== END 2016-07-16 10:21 | disposition home or self-care (01) ==
LOC: M ED 06:34
DX: R50.9 Fever, unspecified (principal); J18.9 Pneumonia, unspecified organism; Z88.0 Allergy status to penicillin; Z88.1 Allergy status to other antibiotic agents; Z91.013 Allergy to seafood
CPT/HCPCS: 36415; 71020; 80048; 85025; 87040; 87804; 96365; 96375; 99284; J1885; J1956

== ENCOUNTER → 2016-08-04 | Outpatient (CLI) | payer BC ==
--- NOTE | 2016-08-05 01:23 | REP ---
Clinical: Follow up pneumonia . Comparison: 07/16/2016 . Technique: PA and lateral. Findings: The mediastinum and cardiac silhouette are normal. The lung alexander are clear and without acute consolidation, effusion, or pneumothorax. Previously identified right lower lobe infiltrate has resolved. The skeletal structures are intact and normal. Impression: 1. No acute cardiopulmonary process. Previous right lower lobe infiltrate appears to have resolved. Signed by Wilner Crocker MD 08/05/2016 01:15 A
== END ==
LOC: M RAD 12:21
PROVIDERS: ATTEND Family Medicine Addiction Medicine
DX: J18.9 Pneumonia, unspecified organism (principal)

== ENCOUNTER → 2018-05-04 | Outpatient (REF) | payer OTHER | LOC: M SFHCLERA 20:48 | DX: J02.9 Acute pharyngitis, unspecified (principal) ==

== ENCOUNTER → 2019-01-27 | Outpatient (CLI) | payer MEDICAID, OTHER ==
--- NOTE | 2019-01-28 09:41 | REP ---
MRI RIGHT KNEE: TECHNIQUE: Axial proton density fat saturation, sagittal proton density T2 STIR, water excitation, coronal proton density, proton density fat saturation. Study is limited due to patient body habitus and inability to use the dedicated D coil. The menisci show no evidence of a tear. The cruciate and collateral ligaments appear intact. The extensor mechanism is intact. There appears to be a very mild global chondromalacia. No focal osteochondral defect is seen. There is no bone marrow edema or occult fracture. There is a small joint effusion. There is a somewhat loculated popliteal cyst medially, with small locules of fluid between the semimembranosus and the medial head of the gastrocnemius and a dominant locule most posteriorly which is oval in shape and measures approximately 1.8 x 1.2 x 1.7 cm. IMPRESSION: No meniscal tear. Cruciate and collateral ligaments are intact. Mild global chondromalacia. Small joint effusion. Loculated popliteal cyst. Electronically Signed by Rehan Mahoney MD 01/28/2019 11:13 P
== END ==
LOC: M RAD 10:41
PROVIDERS: ATTEND Physician Assistant
DX: M25.561 Pain in right knee (principal)

== ENCOUNTER → 2019-07-25 | Outpatient (REF) | payer OTHER | LOC: M SFHCLERA 10:09 | PROVIDERS: ATTEND Physician Assistant | DX: R50.9 Fever, unspecified (principal) ==

== ENCOUNTER 2019-08-23 10:32 | Emergency (ER) | payer OTHER ==
[~2019-08-23] VITALS: Ht 167.6 cm; Wt 131.7 kg
[2019-08-23] MEDS ORDERED: PREN29TA4 PO (10:48)
[2019-08-23] MEDS ORDERED: ONDANSETRON 4MG/2ML VIAL (J2405) IV ONE (11:45)
[2019-08-23] MEDS ORDERED: ACETAMINOPHEN 325 MG TAB PO ONE (11:45)
[2019-08-23] MEDS ORDERED: NS 1,000 ML IV ONE (11:45)
[2019-08-23 11:56] LABS: INFLUENZA A AMPLIFICATION NEGATIVE (NEGATIVE); INFLUENZA B AMPLIFICATION POSITIVE (NEGATIVE)
[2019-08-23 12:36] LABS: BASO % 0.7 % (0.0-1.0); EOS % 0.5 % (0.0-3.0); HEMATOCRIT 42.4 % (36.0-47.0); HEMOGLOBIN 14.2 g/dl (12.0-15.5); LYMPH # 0.5 10^3/uL (1.5-5.0); LYMPH % 11.1 % (24.0-44.0); MEAN CORPUSCULAR HEMOGLOBIN 31.1 pg (27.0-33.0); MEAN CORPUSCULAR HGB CONC 33.5 g/dl (32.0-36.5); MEAN CORPUSCULAR VOLUME 92.8 fl (80.0-96.0); MONO # 0.7 10^3/uL (0.0-0.8); MONO % 16.9 % (0.0-5.0); NEUTROPHILS # 2.9 10^3/uL (1.5-8.5); NEUTROPHILS % 70.6 % (36.0-66.0); PLATELET COUNT, AUTOMATED 179 10^3/uL (150-450); RED BLOOD COUNT 4.57 10^6/uL (4.00-5.40); WHITE BLOOD COUNT 4.1 10^3/uL (4.0-10.0)
[2019-08-23 12:52] LABS: BLOOD UREA NITROGEN 10 MG/DL (7-18); CALCIUM LEVEL 9.2 MG/DL (8.5-10.1); CARBON DIOXIDE LEVEL 25 MEQ/L (21-32); CHLORIDE LEVEL 104 MEQ/L (98-107); GLOMERULAR FILTRATION RATE > 60.0 (>60); GLUCOSE, FASTING 86 MG/DL (70-100); POTASSIUM SERUM 3.8 MEQ/L (3.5-5.1); SODIUM LEVEL 140 MEQ/L (136-145)
[2019-08-23 12:54] LABS: HCG, SERUM QUALITATIVE NEGATIVE (NEGATIVE)
[2019-08-23] MEDS ORDERED: IBUP-1022 PO (13:44)
[2019-08-23] MEDS ORDERED: ONDA4TAB6 PO (13:44)
[2019-08-23] MEDS ORDERED: KETOROLAC 30 MG/ML VIAL (J1885) IV ONE (14:00)
[2019-08-23 14:40] VITALS: BP 113/70
== END 2019-08-23 14:39 | disposition home or self-care (01) ==
LOC: M ED 10:32
DX: J10.89 Influenza due to other identified influenza virus with other manifestations (principal); Z88.0 Allergy status to penicillin; Z88.1 Allergy status to other antibiotic agents; Z88.8 Allergy status to other drugs, medicaments and biological substances; Z91.018 Allergy to other foods
CPT/HCPCS: 80048; 84703; 85025; 87502; 96361; 96374; 96375; 99284; J1885; J2405

== ENCOUNTER → 2021-05-06 | Outpatient (CLI) | payer OTHER ==
[~2021-05-06] MED LIST: IBUP-1022 PO; ONDA4TAB6 PO; PREN29TA4 PO
[2021-05-06 14:17] LABS: BASO % 0.3 % (0.0-1.0); EOS % 0.3 % (0.0-3.0); HEMATOCRIT 46.1 % (36.0-47.0); HEMOGLOBIN 15.3 g/dl (12.0-15.5); LYMPH # 1.4 10^3/uL (1.5-5.0); LYMPH % 18.5 % (24.0-44.0); MEAN CORPUSCULAR HGB CONC 33.2 g/dl (32.0-36.5); MEAN CORPUSCULAR VOLUME 93.5 fl (80.0-96.0); MONO # 0.6 10^3/uL (0.0-0.8); MONO % 7.9 % (2.0-8.0); NEUTROPHILS # 5.7 10^3/uL (1.5-8.5); NEUTROPHILS % 72.7 % (36.0-66.0); PLATELET COUNT, AUTOMATED 232 10^3/uL (150-450); RED BLOOD COUNT 4.93 10^6/uL (4.00-5.40); WHITE BLOOD COUNT 7.8 10^3/uL (4.0-10.0)
[2021-05-06 15:34] LABS: HEPATITIS C VIRUS ABY INDEX < 0.0 INDEX (<0.8); HIV 1&2 SCREEN CENTAUR NEGATIVE (NEGATIVE)
[2021-05-06 18:23] LABS: GC DNA AMPLIFICATION NEGATIVE (NEGATIVE)
== END ==
LOC: M PLALAB 12:03
PROVIDERS: ATTEND Advanced Practice Midwife
DX: Z34.81 Encounter for supervision of other normal pregnancy, first trimester (principal); Z3A.00 Weeks of gestation of pregnancy not specified

== ENCOUNTER → 2021-06-02 | Outpatient (REF) | payer OTHER ==
[~2021-06-02] MED LIST changes: +MACR100C43 PO; +REGL10TA6 PO
== END ==
LOC: M SFHCWAGY 12:54
PROVIDERS: ATTEND Advanced Practice Midwife
DX: Z34.82 Encounter for supervision of other normal pregnancy, second trimester (principal)

== ENCOUNTER 2021-07-15 00:56 | Emergency (ER) | payer OTHER ==
[~2021-07-15 00:56] MED LIST changes: -MACR100C43 PO; -REGL10TA6 PO
[2021-07-15] MEDS ORDERED: ACETAMINOPHEN 325 MG TAB PO ONE (10:45)
[2021-07-15] MEDS ORDERED: NS 1,000 ML IV ONE (10:45)
[2021-07-15 12:38] VITALS: O2SAT 96
[2021-07-15] MEDS ORDERED: REGL10TA6 PO (12:45)
[2021-07-15] MEDS ORDERED: MACR100C43 PO (12:46)
[2021-07-15 13:33] VITALS: BP 118/69
== END 2021-07-15 13:35 | disposition home or self-care (01) ==
LOC: M ED 00:56
DX: R68.89 Other general symptoms and signs (principal); U07.1 COVID-19; R82.998 Other abnormal findings in urine

== ENCOUNTER → 2021-08-24 | Outpatient (REF) | payer OTHER ==
[~2021-08-24] MED LIST changes: +MACR100C43 PO; +REGL10TA6 PO
== END ==
LOC: M PLALAB 10:10
PROVIDERS: ATTEND Advanced Practice Midwife
DX: Z34.82 Encounter for supervision of other normal pregnancy, second trimester (principal)

== ENCOUNTER → 2021-08-24 | Outpatient (CLI) | payer OTHER | LOC: M PLALAB 09:45 | PROVIDERS: ATTEND Advanced Practice Midwife | DX: Z34.82 Encounter for supervision of other normal pregnancy, second trimester (principal); Z3A.00 Weeks of gestation of pregnancy not specified ==

== ENCOUNTER → 2021-11-16 | Outpatient (REF) | payer OTHER | LOC: M PLALAB 13:23 | PROVIDERS: ATTEND Advanced Practice Midwife | DX: Z34.83 Encounter for supervision of other normal pregnancy, third trimester (principal) ==

== ENCOUNTER 2023-07-20 19:16 | Emergency (ER) | payer OTHER ==
[~2023-07-20] VITALS: Ht 167.6 cm; Wt 140.5 kg
[~2023-07-20 19:16] MED LIST changes: +OMEP1CAP93 PO; +TUMS500C PO
[2023-07-20] MEDS ORDERED: DELS1LIQ3 PO (19:26)
[2023-07-20] MEDS ORDERED: ACETAMINOPHEN 500 MG TAB PO ONE (19:40)
[2023-07-20 20:19] LABS: RSV AMPLIFICATION POSITIVE (NEGATIVE)
[2023-07-20 21:04] VITALS: BP 140/74; TEMP 100.1; O2SAT 96
== END 2023-07-20 21:05 | disposition home or self-care (01) ==
LOC: M ED 19:16
DX: B34.8 Other viral infections of unspecified site (principal); F17.200 Nicotine dependence, unspecified, uncomplicated; Z88.0 Allergy status to penicillin; Z88.1 Allergy status to other antibiotic agents; Z91.013 Allergy to seafood; Z79.899 Other long term (current) drug therapy

== ENCOUNTER 2023-09-01 09:24 | Emergency (ER) | payer OTHER ==
[~2023-09-01] VITALS: Ht 167.6 cm; Wt 140.3 kg
[~2023-09-01 09:24] MED LIST changes: +DELS1LIQ3 PO
[2023-09-01 13:00] VITALS: BP 137/80; TEMP 97.1; O2SAT 99
[2023-09-01] MEDS: IBUPROFEN 600MG TAB PO ONE (13:10)
[2023-09-01] MEDS ORDERED: IBUP-1022 PO (13:26)
== END 2023-09-01 13:33 | disposition home or self-care (01) ==
LOC: M ED 09:24
DX: R22.42 Localized swelling, mass and lump, left lower limb (principal); Z88.0 Allergy status to penicillin; Z88.1 Allergy status to other antibiotic agents; Z91.013 Allergy to seafood; Z79.1 Long term (current) use of non-steroidal anti-inflammatories (NSAID)

== ENCOUNTER 2023-10-21 16:02 | Emergency (ER) | payer OTHER ==
[~2023-10-21] VITALS: Ht 167.6 cm; Wt 140.0 kg
[2023-10-21 17:06] LABS: BASO % 0.4 % (0.0-1.0); EOS % 0.3 % (0.0-3.0); HEMATOCRIT 44.1 % (36.0-47.0); HEMOGLOBIN 14.9 g/dl (12.0-15.5); LYMPH # 1.6 10^3/uL (1.5-5.0); LYMPH % 21.4 % (24.0-44.0); MEAN CORPUSCULAR HEMOGLOBIN 31.4 pg (27.0-33.0); MEAN CORPUSCULAR HGB CONC 33.8 g/dl (32.0-36.5); MEAN CORPUSCULAR VOLUME 92.8 fl (80.0-96.0); MONO # 0.5 10^3/uL (0.0-0.8); NEUTROPHILS # 5.3 10^3/uL (1.5-8.5); NEUTROPHILS % 71.5 % (36.0-66.0); PLATELET COUNT, AUTOMATED 254 10^3/uL (150-450); RED BLOOD COUNT 4.75 10^6/uL (4.00-5.40); WHITE BLOOD COUNT 7.4 10^3/uL (4.0-10.0)
[2023-10-21 17:21] LABS: LIPASE 30 U/L (12-53)
[2023-10-21 17:23] LABS: ALBUMIN 3.4 G/DL (3.2-5.2); ALKALINE PHOSPHATASE 65 U/L (46-116); ALT/SGPT 17 U/L (7.0-40); AST/SGOT 11 U/L (<34); BILIRUBIN,DIRECT 0.2 MG/DL (<0.4); BILIRUBIN,TOTAL 0.6 MG/DL (0.3-1.2); BLOOD UREA NITROGEN 8 MG/DL (9-23); CALCIUM LEVEL 9.5 MG/DL (8.5-10.1); CARBON DIOXIDE LEVEL 25 MMOL/L (20-31); CHLORIDE LEVEL 104 MMOL/L (98-107); GLOMERULAR FILTRATION RATE > 60.0 (>60); GLUCOSE, FASTING 91 MG/DL (60-100); POTASSIUM SERUM 4.1 MMOL/L (3.5-5.1); SODIUM LEVEL 138 MMOL/L (136-145); TOTAL PROTEIN 6.4 G/DL (5.7-8.2)
[2023-10-21 17:50] LABS: HCG, SERUM QUANTITATIVE 142021.5 MIU/ML (<4.2)
[2023-10-21] MEDS: ONDANSETRON 4MG 2ML VIAL IV ONE (19:11)
[2023-10-21] MEDS: NS 1,000 ML IV ONE (19:11)
[2023-10-21] MEDS ORDERED: MACR100C43 PO (20:05)
[2023-10-21] MEDS ORDERED: ONDA4TAB6 PO (20:07)
[2023-10-21 20:58] VITALS: BP 126/68; TEMP 99.2; O2SAT 100
== END 2023-10-21 21:04 | disposition home or self-care (01) ==
LOC: M ED 16:02
DX: O21.1 Hyperemesis gravidarum with metabolic disturbance (principal); O23.41 Unspecified infection of urinary tract in pregnancy, first trimester; Z3A.08 8 weeks gestation of pregnancy; Z88.0 Allergy status to penicillin; Z88.1 Allergy status to other antibiotic agents; Z91.013 Allergy to seafood; Z79.2 Long term (current) use of antibiotics; Z79.83 Long term (current) use of bisphosphonates; Z79.899 Other long term (current) drug therapy
CPT/HCPCS: 80048; 80076; 81001; 83690; 84702; 85025; 86850; 86900; 86901; 87086; 96361; 96374; 99284; J2405

== ENCOUNTER → 2023-11-07 | Outpatient (CLI) | payer OTHER ==
[2023-11-07 12:58] LABS: HEMATOCRIT 42.4 % (36.0-47.0); HEMOGLOBIN 14.5 g/dl (12.0-15.5); MEAN CORPUSCULAR HEMOGLOBIN 31.3 pg (27.0-33.0); MEAN CORPUSCULAR HGB CONC 34.2 g/dl (32.0-36.5); MEAN CORPUSCULAR VOLUME 91.6 fl (80.0-96.0); PLATELET COUNT, AUTOMATED 208 10^3/uL (150-450); RED BLOOD COUNT 4.63 10^6/uL (4.00-5.40); WHITE BLOOD COUNT 6.8 10^3/uL (4.0-10.0)
[2023-11-07 13:18] LABS: HEMOGLOBIN A1c 4.8 % (4.0-6.0)
[2023-11-07 13:53] LABS: HIV 1&2 SCREEN NEGATIVE (NEGATIVE)
[2023-11-07 14:02] LABS: HEPATITIS C VIRUS ABY INDEX < 0.02 INDEX (<0.8)
[2023-11-07 14:07] LABS: GC DNA AMPLIFICATION NEGATIVE (NEGATIVE)
== END ==
LOC: M PLALAB 09:36
PROVIDERS: ATTEND Obstetrics & Gynecology
DX: Z34.91 Encounter for supervision of normal pregnancy, unspecified, first trimester (principal)

== ENCOUNTER → 2024-01-10 | Outpatient (CLI) | payer OTHER ==
[~2024-01-10] MED LIST changes: +ONDA-282 PO; -ONDA4TAB6 PO
== END ==
LOC: M WHC 13:38
PROVIDERS: ATTEND Advanced Practice Midwife
DX: Z34.92 Encounter for supervision of normal pregnancy, unspecified, second trimester (principal); Z36.2 Encounter for other antenatal screening follow-up; Z3A.20 20 weeks gestation of pregnancy

== ENCOUNTER → 2024-02-02 | Outpatient (CLI) | payer OTHER | LOC: M WHC 12:24 | PROVIDERS: ATTEND Obstetrics & Gynecology | DX: O99.212 Obesity complicating pregnancy, second trimester (principal); Z3A.23 23 weeks gestation of pregnancy ==

== ENCOUNTER → 2024-02-14 | Outpatient (CLI) | payer OTHER ==
[2024-02-14 15:29] LABS: HEMATOCRIT 41.8 % (36.0-47.0); HEMOGLOBIN 14.2 g/dl (12.0-15.5); MEAN CORPUSCULAR VOLUME 94.1 fl (80.0-96.0); PLATELET COUNT, AUTOMATED 181 10^3/uL (150-450); RED BLOOD COUNT 4.44 10^6/uL (4.00-5.40); WHITE BLOOD COUNT 7.4 10^3/uL (4.0-10.0)
[2024-02-14 15:44] LABS: GLUCOSE CHALLENGE TEST 1 HOUR 94 MG/DL (LESS THAN 140)
[2024-02-14 16:19] LABS: HIV 1&2 SCREEN NEGATIVE (NEGATIVE)
[2024-02-14 16:27] LABS: HEPATITIS C VIRUS ABY INDEX < 0.02 INDEX (<0.8)
[2024-02-14 16:52] LABS: GC DNA AMPLIFICATION NEGATIVE (NEGATIVE)
== END ==
LOC: M PLALAB 10:24
PROVIDERS: ATTEND Obstetrics & Gynecology
DX: O99.212 Obesity complicating pregnancy, second trimester (principal); Z3A.00 Weeks of gestation of pregnancy not specified

== ENCOUNTER 2024-03-27 14:15 | Emergency (ER) | payer OTHER ==
[~2024-03-27] VITALS: Ht 167.6 cm; Wt 147.9 kg
[2024-03-27 14:17] VITALS: BP 141/89; TEMP 98.6; O2SAT 100
== END 2024-03-27 14:19 | disposition admitted as inpatient to this hospital (09) ==
LOC: M ED 14:15
DX: Z53.21 Procedure and treatment not carried out due to patient leaving prior to being seen by health care provider (principal)

== ENCOUNTER 2024-03-27 14:27 | Outpatient (CLI) | payer OTHER ==
[~2024-03-27] VITALS: Ht 167.6 cm; Wt 148.5 kg
[2024-03-27 14:47] VITALS: BP 121/72
[2024-03-27 15:34] VITALS: BP 121/72; O2SAT 99
[2024-03-27 17:29] VITALS: BP 126/78
== END 2024-03-27 17:30 | disposition home or self-care (01) ==
LOC: M LDO 14:27
PROVIDERS: ATTEND Obstetrics & Gynecology
DX: O26.893 Other specified pregnancy related conditions, third trimester (principal); O98.53 Other viral diseases complicating the puerperium; U07.1 COVID-19; Z3A.31 31 weeks gestation of pregnancy
CPT/HCPCS: 59025; 87486; 87581; 87633; 87798; G0463

== ENCOUNTER → 2024-05-07 | Outpatient (REF) | payer OTHER | LOC: M SFHCWAGY 14:35 | PROVIDERS: ATTEND Obstetrics & Gynecology | DX: O99.213 Obesity complicating pregnancy, third trimester (principal) ==

== ENCOUNTER → 2024-10-01 | Outpatient (CLI) | payer OTHER ==
[~2024-10-01] MED LIST changes: +OMEP10CASR PO; +PRENTAB9 PO
[2024-10-01 13:01] LABS: BASO % 0.8 % (0.0-1.0); EOS # 0.2 10^3/uL (0.0-0.5); HEMATOCRIT 43.5 % (36.0-47.0); HEMOGLOBIN 14.3 g/dl (12.0-15.5); LYMPH # 2.1 10^3/uL (1.5-5.0); LYMPH % 41.5 % (24.0-44.0); MEAN CORPUSCULAR HEMOGLOBIN 29.5 pg (27.0-33.0); MEAN CORPUSCULAR HGB CONC 32.9 g/dl (32.0-36.5); MEAN CORPUSCULAR VOLUME 89.9 fl (80.0-96.0); MONO # 0.4 10^3/uL (0.0-0.8); MONO % 8.3 % (2.0-8.0); NEUTROPHILS # 2.3 10^3/uL (1.5-8.5); PLATELET COUNT, AUTOMATED 241 10^3/uL (150-450); RED BLOOD COUNT 4.84 10^6/uL (4.00-5.40); WHITE BLOOD COUNT 5.1 10^3/uL (4.0-10.0)
[2024-10-01 13:38] LABS: ALBUMIN 3.7 G/DL (3.2-5.2); ALKALINE PHOSPHATASE 78 U/L (35-104); ALT/SGPT 16 U/L (7.0-40); AST/SGOT 11 U/L (<34); BILIRUBIN,TOTAL 0.4 MG/DL (0.3-1.2); BLOOD UREA NITROGEN 19 MG/DL (9-23); CALCIUM LEVEL 9.1 MG/DL (8.5-10.1); CARBON DIOXIDE LEVEL 25 MMOL/L (20-31); CHLORIDE LEVEL 106 MMOL/L (98-107); CHOLESTEROL LEVEL 168 MG/DL (<200); CHOLESTEROL RISK RATIO 3.11 (<5); CREATININE FOR GFR 0.67 MG/DL (0.55-1.30); GLOMERULAR FILTRATION RATE > 60.0 (>60); GLUCOSE, FASTING 80 MG/DL (60-100); LDL CHOLESTEROL 95.6 MG/DL (<100); POTASSIUM SERUM 4.5 MMOL/L (3.5-5.1); SODIUM LEVEL 141 MMOL/L (136-145); THYROID STIMULATING HORMONE 0.133 uIU/ML (0.55-4.78); TOTAL PROTEIN 6.9 G/DL (5.7-8.2); TRIGLYCERIDES LEVEL 92 MG/DL (<150)
[2024-10-01 13:39] LABS: TOTAL 25(OH) VITAMIN D 27.5 NG/ML (20.0-100.0)
[2024-10-01 13:40] LABS: FREE T4 1.72 NG/DL (0.89-1.76)
== END ==
LOC: M LAB 09:14
PROVIDERS: ATTEND Physician Assistant Medical
DX: E55.9 Vitamin D deficiency, unspecified (principal); Z13.6 Encounter for screening for cardiovascular disorders; R63.5 Abnormal weight gain; E78.2 Mixed hyperlipidemia